=== PATIENT | male | born 1950 | race Caucasian/White ===

== ENCOUNTER 2016-06-24 00:40 | Observation (INO) | payer OTHER ==
[2016-06-24] MEDS ORDERED: NS 500 ML IV ONE (00:51)
[2016-06-24] MEDS ORDERED: ASPIRIN 81 MG CHEWABLE TAB PO ONE (00:51)
[2016-06-24] MEDS ORDERED: ONDANSETRON 4 MG/2 ML VIAL IVP ONE (00:51)
--- NOTE | 2016-06-24 00:51 | EDPHY ---
H & P Stated Complaint: wrist pain, irregular heartbeat HPI/ROS: HPI CHIEF COMPLAINT: left arm pain, nausea, palpitations HISTORY OF PRESENT ILLNESS: This patient very pleasant 65-year-old male significant past medical history for coronary artery disease, CABG, he had 3 vessel bypass, and then had 3 stents placed after his bypass surgery, takes daily Plavix, denies any other significant medical history, presents to the emergency room with left arm pain that he describes an achy sensation is lower arm. He states around 630PM he was out to dinner he developed left lower wrist pain arm pain that progressed throughout dinner he then went to a movie with his noticed that he had an irregular pulse, and his left arm pain started to progress worse going up his left arm. He denies chest pain he does endorse some nausea and lightheadedness and palpitations. Denies shortness of breath, denies history of blood clot. Denies trauma currently this time his left arm pain is 6/10 achy in sensation. Nonradiating. Not worse with movement. Denies injury. Past Medical History: Coronary artery disease Past Surgical History: CABG, 3 vessel Social History: Denies daily use drugs, alcohol, tobacco products Family History: Noncontributory ROS REVIEW OF SYSTEMS: A comprehensive 10 point review of systems is otherwise negative aside from elements mentioned in the history of present illness. Exam Constitutional triage nursing summary reviewed, vital signs reviewed, awake/ alert. Eyes normal conjunctivae and sclera, EOMI, PERRLA. HENT normal inspection, atraumatic, moist mucus membranes, no epistaxis, neck supple/ no meningismus, no raccoon eyes. Respiratory clear to auscultation bilaterally, normal breath sounds, no respiratory distress, no wheezing. Cardiovascular rate normal, regular rhythm, no murmur, no edema, distal pulses normal. Gastrointestinal soft, non-tender, no rebound, no guarding, normal bowel sounds, no distension, no pulsatile mass. Genitourinary no CVA tenderness. Musculoskeletal left upper extremity: Neurovascularly intact, good cap refill , good radial pulse, good sensation, no signs of significant swelling, no crepitus on exam, no rash, no warmth, no midline vertebral tenderness, full range of motion, no calf swelling, no tenderness of extremities, no meningismus , good pulses, neurovascularly intact. Skin pink, warm, & dry, no rash, skin atraumatic. Neurologic awake, alert and oriented x 3, AAOx3, moves all 4 extremities equally, motor intact, sensory intact, CN II-XII intact, normal cerebellar, normal vision, normal speech. Psychiatric normal mood/affect. Heme/Lymph/Immune no lymphadenopathy. Differential diagnosis includes but is not limited to: ACS, aortic dissection, atypical chest pain, pneumothorax, pneumonia, pulmonary embolism, aortic dissection, congestive heart failure, tumor, musculoskeletal pain, esophageal pain, GERD, peptic ulcer disease, pancreatitis Medical Decision Making: This patient had an IV established patient be given morphine for pain control, will check an EKG, chest x-ray, blood work, troponin , we may need to rule out aortic dissection given severe left arm pain. Re-evaluation: EKG interpretation by me on record in [employer] system. Impression time of EKG 0051, this is sinus rhythm rate of 94, ventricular bigeminy present, left anterior fascicular block present, PVC present. No old EKG to compare this to I do not appreciate an acute ST-elevation AR. ED x-ray chest one view: Cardiomegaly present, otherwise unremarkable. EKG interpretation by me on record in [employer] system. Impression repeat EKG time of EKG 1:31 a.m., this is sinus rhythm rate of 73, PVC present, left anterior fascicular block present, I do not appreciate ST elevation, ST depression significant T-wave abnormality. CT scan of the angiogram chest. The results of the study are no evidence of aortic dissection or thoracic aortic aneurysm, there is a subsegmental left lower lobe pulmonary embolism. The study was read by Dr. Davison I viewed the images myself on the PACS system. 0254: this patient will need to be admitted for ongoing left wrist pain, I do not think this is a cardiac equivalent however he does have significant coronary disease. His CT angiogram does show left lower lobe subsegmental pulmonary embolism I have ordered him Lovenox 1 milligram/kilogram, I will admit him to the hospital service for observation, serial cardiac enzymes, treatment of this small left lower lobe subsegmental pulmonary embolism which most likely does not explain his left wrist pain. I have ordered a left wrist x -ray. He is focally tender at the distal left wrist however to neurovascular intact there is no crepitus warmth or redness. Most likely this may be a acute arthralgia, gout, tendinitis. Patient be admitted for small subsegmental left lower lobe PE. Left wrist pain most likely arthralgia, and serial enzymes to rule out cardiac. Spoke with the hospitalist service Dr. Chatman who agrees to admit. Source: Patient - Personal History Current Tetanus/Diphtheria Vaccine: Yes - Medical/Surgical History Hx Asthma: No Hx Chronic Respiratory Disease: No Hx Diabetes: No Hx Cardiac Disease: Yes Hx Renal Disease: No Hx Cirrhosis: No Hx Alcoholism: No Hx HIV/AIDS: No Hx Splenectomy or Spleen Trauma: No Other PMH: CABG - Social History Smoking Status: Never smoked Constitutional: Initial Vital Signs Temperature (C) 36.6 C 06/24/16 00:45 Heart Rate 63 06/24/16 00:45 Respiratory Rate 14 06/24/16 00:45 Blood Pressure 168/77 H 06/24/16 00:45 O2 Sat (%) 93 06/24/16 00:45 O2 Delivery Mode Room Air O2 (L/minute) 2 Allergies/Adverse Reactions: codeine Allergy (Verified 06/24/16 01:37) Abdominal Pain Home Medications: Medication Instructions Recorded Apixaban [Eliquis] 5 mg PO BID #70 tablet 06/24/16 Aspirin EC [Aspirin EC 81 mg (*)] 81 mg PO DAILY@06/24/16 Cholecalciferol Vit D3 [Vitamin D3 1,000 units PO DAILY@06/24/16 (*)] Clopidogrel Bisulfate [Plavix (*)] 75 mg PO DAILY@06/24/16 Glucosamine Sulfate [Glucosamine 500 mg PO DAILY@06/24/16 Sulfate 500 MG (*)] Herbals/Supplements -Info Only 1 ea PO DAILY 06/24/16 Metoprolol Succinate Xr [Toprol Xl 25 mg PO DAILY@06/24/16 25 mg (*)] Rosuvastatin Calcium [Crestor 40mg 40 mg PO DAILY@06/24/16 (*)] Sertraline HCl [Zoloft 50mg (*)] 50 mg PO DAILY@06/24/16 Medical Decision Making - Data Points Laboratory Results: Laboratory Results 06/24/16 00:55 06/24/16 00:55 Medications Given: Discontinued Medications Aspirin (Aspirin) 324 mg PO EDNOW ONE Stop: 06/24/16 00:52 Last Admin: 06/24/16 01:25 Dose: 324 mg Enoxaparin Sodium (Lovenox) 100 mg SC ONCE ONE Stop: 06/24/16 03:31 Last Admin: 06/24/16 03:30 Dose: 100 mg Hydromorphone HCl (Dilaudid) 0.5 mg IVP ONCE ONE Stop: 06/24/16 02:53 Last Admin: 06/24/16 03:14 Dose: 0.5 mg Sodium Chloride (Ns) 500 mls @ 0 mls/hr IV ONCE ONE PRN Reason: As Directed Stop: 06/24/16 00:52 Last Admin: 06/24/16 01:25 Dose: 500 mls Morphine Sulfate (Morphine) 4 mg IVP EDNOW ONE Stop: 06/24/16 00:52 Last Admin: 06/24/16 01:25 Dose: 4 mg Nitroglycerin (Nitrostat) 0.4 mg SL EDNOW ONE Stop: 06/24/16 01:51 Last Admin: 06/24/16 01:54 Dose: 0.4 mg Ondansetron HCl (Zofran) 4 mg IVP EDNOW ONE Stop: 06/24/16 00:52 Last Admin: 06/24/16 01:25 Dose: 4 mg Departure - Departure Disposition: [facility] Inpatient Acute Clinical Impression: Wrist pain, acute Qualifiers: Qualifier Code: (M25.532) Pain in left wrist Pulmonary emboli Qualifiers: Qualifier Code: (I26.99) Other pulmonary embolism without acute cor pulmonale Condition: Fair
--- NOTE | 2016-06-24 00:55 | CPEKG ---
Heart Rate: 94 RR Interval: 638 P-R Interval: 164 QRSD Interval: 94 QT Interval: 364 QTC Interval: 456 P Severance: 38 QRS Severance: -73 T Wave [place]: 60 EKG Severity - ABNORMAL ECG - EKG Impression: SINUS RHYTHM EKG Impression: VENTRICULAR BIGEMINY EKG Impression: LEFT ANTERIOR FASCICULAR BLOCK Electronically Signed By: Rolando Cotton 24-Jun-2016 07:26:41
[2016-06-24 01:04] LABS: % IMMATURE GRANULYOCYTES 0.3 % (0.0-1.1); ABSOLUTE IMMATURE GRANULOCYTES 0.02 10^3/uL (0.00-0.10); ADD DIFF? NO; ADD MORPH? NO; ADD SCAN? NO; ATYPICAL LYMPHOCYTE FLAG 0 (0-99); FRAGMENT RBC FLAG 0 (0-99); HEMATOCRIT 41.3 % (40.0-51.0); LEFT SHIFT FLG 0 (0-99); LIPEMIA HEMOLYSIS FLAG 90 (0-99); MEAN CELL HEMOGLOBIN 30.7 pg (27.9-34.1); MEAN CELL HEMOGLOBIN CONCENTR. 36.3 g/dL (32.4-36.7); MEAN CELL VOLUME 84.5 fL (81.5-99.8); MEAN PLATELET VOLUME 10.6 fL (8.7-11.7); PLATELET CLUMPS FLAG 0 (0-99); PLATELET COUNT 207 10^3/uL (150-400); RED BLOOD CELL COUNT 4.89 10^6/uL (4.40-6.38); RED CELL DISTRIBUTION WIDTH 12.1 % (11.5-15.2)
[2016-06-24 01:11] LABS: INR 0.95 (0.83-1.16); PROTIME(PATIENT) 12.6 SEC (12.0-15.0)
[2016-06-24 01:12] LABS: APTT 26.3 SEC (23.0-38.0)
[2016-06-24] MEDS ORDERED: IOPAMIDOL (ISOVUE 370) 100 ML BTL IV ONE (01:15)
[2016-06-24 01:16] LABS: ALANINE AMINOTRANSFERASE 54 IU/L (21-72); ALBUMIN 4.2 g/dL (3.5-5.0); ALKALINE PHOSPHATASE 50 IU/L (38-126); ANION GAP 12 mEq/L (8-16); ASPARTATE AMINOTRANSFERASE 37 IU/L (17-59); BILIRUBIN,TOTAL 0.5 mg/dL (0.1-1.4); BILIRUBIN-CONJUGATED 0.2 mg/dL (0.0-0.5); BILIRUBIN-UNCONJUGATED 0.3 mg/dL (0.0-1.1); CALCIUM 9.4 mg/dL (8.5-10.4); CARBON DIOXIDE 23 mEq/l (22-31); CHLORIDE 108 mEq/L (97-110); CREATININE 0.9 mg/dL (0.7-1.3); GLOMERULAR FILTRATION RATE > 60; GLUCOSE 112 mg/dL (70-100); MAGNESIUM 1.8 mg/dL (1.6-2.3); POTASSIUM 3.9 mEq/L (3.5-5.2); SODIUM 143 mEq/L (134-144); TOTAL PROTEIN 6.6 g/dL (6.3-8.2)
[2016-06-24 01:30] LABS: TROPONIN I < 0.012 ng/mL (0-0.034)
--- NOTE | 2016-06-24 01:38 | CPEKG ---
Heart Rate: 73 RR Interval: 822 P-R Interval: 168 QRSD Interval: 92 QT Interval: 416 QTC Interval: 459 P [place]: 45 QRS [place]: -57 T Wave [place]: 59 EKG Severity - ABNORMAL ECG - EKG Impression: SINUS RHYTHM EKG Impression: MULTIPLE VENTRICULAR PREMATURE COMPLEXES EKG Impression: LEFT ANTERIOR FASCICULAR BLOCK EKG Impression: BORDERLINE R WAVE PROGRESSION, ANTERIOR LEADS Electronically Signed By: Rolando Cotton 24-Jun-2016 07:26:41
[2016-06-24] MEDS ORDERED: NITROGLYCERIN 0.4 MG BTL SL ONE (01:50)
[2016-06-24] MEDS ORDERED: ENOXAPARIN 100 MG/ML SYR SC ONE ×2 (02:51→03:30)
[2016-06-24] MEDS ORDERED: HYDROmorphONE/DILAUDID 1 MG/ML SYR IVP ONE (02:52)
--- NOTE | 2016-06-24 03:46 | PDGENHP ---
History and Physical - Chief Complaint L wrist pain - History of Present Illness Pt is 65/M with CAD s/p CABG and PCI who presents to the ED with left wrist pain. Patient states pain started around 630 after dinner on 06/23, with a sharp achy type type pain on the radial aspect of his distal wrist. He then went to a movie with his and pain continued to worsen throughout the evening, pain began to radiate to his medial hand and up his forearm. He denies any recent trauma, fall on outstretched hand and also denies any associated swelling, redness, warmth. He does report the day prior to presentation he spent a large portion of the afternoon performing yard work, including raking in cleaning brush for several hours. Decided to come to the ED when the pain began to radiate up his left arm (did not extend proximally beyond his elbow). He has never felt this type of pain before, he has no prior history of gout or carpal tunnel syndrome. Upon arrival to the ED patient was afebrile and hemodynamically stable. EKG revealed sinus rhythm with bigeminy, labs including troponin and electrolytes were within normal limits. CT angio the chest was obtained to rule out aortic dissection as a cause of his symptoms; dissection/aneurysm were ruled out, however incidental left lower lobe acute PE was discovered. Pt was given pain control and initiated on Lovenox for systemic anticoagulation and admitted to the hospitalist service for further management. On further questioning patient does report about 1 month ago he and his drove from [place] to [facility] and traveled the [facility] for several days. This vacation had multiple days of long (>6hr) car rides. On presentation, patient denies any chest pain, palpitations, pleuritic chest pain or acute shortness of breath. Does report over the last 2-3 days he has noticed a new decrease in his exercise tolerance due to dyspnea. History Information - Allergies/Home Medication List Allergies/Adverse Reactions: codeine Allergy (Verified 06/24/16 01:37) Abdominal Pain I have personally reviewed and updated: family history, medical history, social history, surgical history - Past Medical History Additional medical history: CAD s/p CABG x 3 vessels and then restenosis of grafted vessels, requiring PCI (2008) - Surgical History Additional surgical history: CABG. R shoulder arthroscopy - Family History Positive for: non-pertinent (no FH of CAD, DM2, cancer) - Social History Smoking Status: Never smoked Alcohol Use: Occasionally (1 glass of wine nightly) Drug Use: None Additional social history: Pt lives with , recently retired traveling salesman. Review of Systems ROS: 10pt was reviewed & negative except for what was stated in HPI & below Physical Exam Temp Pulse Resp BP Pulse Ox 36.6 C 79 16 121/61 H 92 06/24/16 00:45 06/24/16 02:00 06/24/16 02:00 06/24/16 02:00 06/24/16 02:00 Constitutional: no apparent distress, not in pain, obese Eyes: PERRL, anicteric sclera, EOMI Ears, Nose, Mouth, Throat: moist mucous membranes, hearing normal, ears appear normal, no oral mucosal ulcers Cardiovascular: regular rate and rhythym, no murmur, rub, or gallop, pulses symmetric bilaterally, edema (trace LE edema, R>L), No JVD, No tachycardia Peripheral Pulses: 2+: dorsalis-pedis (R), dorsalis-pedis (L) Respiratory: no respiratory distress, no rales or rhonchi, clear to auscultation Gastrointestinal: normoactive bowel sounds, soft, non-tender abdomen, no palpable masses, No guarding, No rebound, No distension Genitourinary: no bladder fullness, no bladder tenderness Skin: warm, normal color, no rashes or abrasions, no fluctuance, No mottled Musculoskeletal: no joint effusions, other (L wrist tenderness along pollicis tendons and carpal tunnel sheath, with hyperextension and flexion of wrist) Neurologic: AAOx3, sensation intact bilaterally, CN II-XII Intact, No weakness, No numbness, No pronator drift Psychiatric: interacting appropriately, not anxious, not encephalopathic, thought process linear Lab Data & Imaging Review 06/24/16 00:55 06/24/16 00:55 WBC 7.71 10^3/uL (3.80-9.50) 06/24/16 00:55 RBC 4.89 10^6/uL (4.40-6.38) 06/24/16 00:55 Hgb 15.0 g/dL (13.7-17.5) 06/24/16 00:55 Hct 41.3 % (40.0-51.0) 06/24/16 00:55 MCV 84.5 fL (81.5-99.8) 06/24/16 00:55 MCH 30.7 pg (27.9-34.1) 06/24/16 00:55 MCHC 36.3 g/dL (32.4-36.7) 06/24/16 00:55 RDW 12.1 % (11.5-15.2) 06/24/16 00:55 Plt Count 207 10^3/uL (150-400) 06/24/16 00:55 MPV 10.6 fL (8.7-11.7) 06/24/16 00:55 Neut % (Auto) 55.1 % (39.3-74.2) 06/24/16 00:55 Lymph % (Auto) 30.0 % (15.0-45.0) 06/24/16 00:55 Riley % (Auto) 9.9 % (4.5-13.0) 06/24/16 00:55 Eos % (Auto) 3.9 % (0.6-7.6) 06/24/16 00:55 Baso % (Auto) 0.8 % (0.3-1.7) 06/24/16 00:55 Nucleat RBC Rel Count 0.0 % (0.0-0.2) 06/24/16 00:55 Absolute Neuts (auto) 4.26 10^3/uL (1.70-6.50) 06/24/16 00:55 Absolute Lymphs (auto) 2.31 10^3/uL (1.00-3.00) 06/24/16 00:55 Absolute Monos (auto) 0.76 10^3/uL (0.30-0.80) 06/24/16 00:55 Absolute Eos (auto) 0.30 10^3/uL (0.03-0.40) 06/24/16 00:55 Absolute Basos (auto) 0.06 10^3/uL (0.02-0.10) 06/24/16 00:55 Absolute Nucleated RBC 0.00 10^3/uL (0-0.01) 06/24/16 00:55 Immature Gran % 0.3 % (0.0-1.1) 06/24/16 00:55 Immature Gran # 0.02 10^3/uL (0.00-0.10) 06/24/16 00:55 PT 12.6 SEC (12.0-15.0) 06/24/16 00:55 INR 0.95 (0.83-1.16) 06/24/16 00:55 APTT 26.3 SEC (23.0-38.0) 06/24/16 00:55 VBG Lactic Acid 1.6 mmol/L (0.7-2.1) 06/24/16 00:42 Sodium 143 mEq/L (134-144) 06/24/16 00:55 Potassium 3.9 mEq/L (3.5-5.2) 06/24/16 00:55 Chloride 108 mEq/L (97-110) 06/24/16 00:55 Carbon Dioxide 23 mEq/l (22-31) 06/24/16 00:55 Anion Gap 12 mEq/L (8-16) 06/24/16 00:55 BUN 13 mg/dL (7-23) 06/24/16 00:55 Creatinine 0.9 mg/dL (0.7-1.3) 06/24/16 00:55 Estimated GFR > 60 06/24/16 00:55 Glucose 112 mg/dL (70-100) H 06/24/16 00:55 Calcium 9.4 mg/dL (8.5-10.4) 06/24/16 00:55 Magnesium 1.8 mg/dL (1.6-2.3) 06/24/16 00:55 Total Bilirubin 0.5 mg/dL (0.1-1.4) 06/24/16 00:55 Conjugated Bilirubin 0.2 mg/dL (0.0-0.5) 06/24/16 00:55 Unconjugated Bilirubin 0.3 mg/dL (0.0-1.1) 06/24/16 00:55 AST 37 IU/L (17-59) 06/24/16 00:55 ALT 54 IU/L (21-72) 06/24/16 00:55 Alkaline Phosphatase 50 IU/L (38-126) 06/24/16 00:55 Creatine Kinase 98 IU/L (0-224) 06/24/16 00:55 CK-MB (CK-2) Fraction 2.00 ng/mL (0-3.19) 06/24/16 00:55 Troponin I < 0.012 ng/mL (0-0.034) 06/24/16 00:55 NT-Pro-B Natriuret Pep 251 pg/mL (0-125) H 06/24/16 00:55 Total Protein 6.6 g/dL (6.3-8.2) 06/24/16 00:55 Albumin 4.2 g/dL (3.5-5.0) 06/24/16 00:55 Lipase 188.0 IU/L (23-300) 06/24/16 00:55 Visualized and Interpreted Chest x-ray results: Yes Chest X-Ray results: no infiltrate, normal Visualized and Interpreted imaging results: Yes Interpretation: CT angio chest: no aortic dissection or aneurysm; small LLL pulm embolism. L-wrist x-ray: no obvious fracture Visualized and Interpreted EKG results: Yes EKG additional interpertation: sinus rhythm, occasional ventr bigeminy; no ST/T wave changes Assessment & Plan Assessment: Pt is 65/M with CAD who presents to the ED with acute L wrist pain, was incidentally also found to have an acute pulmonary embolism. Plan: # acute LLL pulm embolism Pt hemodynamically stable, troponin negative and EKG without evidence of heart strain. Clot burden appears small on CT. Initiated on lovenox in ED. - check LE dopplers, TTE - trend troponins - cont lovenox 100 mg bid - given pt already on asa/plavix, coumadin will likely be the best agent for systemic anticoagulation # L wrist pain Likely musculoskeletal in origin, differential includes tenosynovitis, carpal tunnel syndrome, osteoarthritis. - f/u official x-ray read - ibuprofen/morphine prn pain - consider wrist splint # CAD Pt denies any chest pain, labs and EKG are wnl. Will cont home meds and TTE to r /o heart strain related to the acute PE. - confirm and cont home meds # dispo: observe in EACU Full code
[2016-06-24 06:45] LABS: % IMMATURE GRANULYOCYTES 0.3 % (0.0-1.1); ABSOLUTE IMMATURE GRANULOCYTES 0.02 10^3/uL (0.00-0.10); ADD DIFF? NO; ADD MORPH? NO; ADD SCAN? NO; ANION GAP 7 mEq/L (8-16); ATYPICAL LYMPHOCYTE FLAG 0 (0-99); CARBON DIOXIDE 24 mEq/l (22-31); CHLORIDE 110 mEq/L (97-110); CREATININE 0.7 mg/dL (0.7-1.3); FRAGMENT RBC FLAG 0 (0-99); GLOMERULAR FILTRATION RATE > 60; GLUCOSE 99 mg/dL (70-100); HEMATOCRIT 37.1 % (40.0-51.0); HEMOGLOBIN 13.1 g/dL (13.7-17.5); LEFT SHIFT FLG 0 (0-99); LIPEMIA HEMOLYSIS FLAG 90 (0-99); MAGNESIUM 1.7 mg/dL (1.6-2.3); MEAN CELL HEMOGLOBIN 30.3 pg (27.9-34.1); MEAN CELL HEMOGLOBIN CONCENTR. 35.3 g/dL (32.4-36.7); MEAN CELL VOLUME 85.9 fL (81.5-99.8); MEAN PLATELET VOLUME 10.6 fL (8.7-11.7); PLATELET CLUMPS FLAG 10 (0-99); PLATELET COUNT 165 10^3/uL (150-400); POTASSIUM 4.5 mEq/L (3.5-5.2); RED BLOOD CELL COUNT 4.32 10^6/uL (4.40-6.38); RED CELL DISTRIBUTION WIDTH 12.5 % (11.5-15.2); SODIUM 141 mEq/L (134-144)
[2016-06-24 06:57] LABS: TROPONIN I < 0.012 ng/mL (0-0.034)
[2016-06-24] MEDS ORDERED: IBUPROFEN 600 MG TAB PO PRN (07:00)
--- NOTE | 2016-06-24 08:25 | US ---
Bilateral Lower Extremity Venous Doppler Study Clinical Indications: 65-year-old male with newly diagnosed PE and asymmetric lower extremity edema. Rule out DVT. Technique: A high-frequency transducer was used for compression imaging and Doppler study of the denis p veins of both legs, from the upper calves to the groins. Pulsed Doppler and color Doppler were util ized, along with various maneuvers to assess flow in the deep veins. Comparison Study: None. Findings: Right Leg: The deep veins of the groin, thigh, knee, and upper calf are well-displayed, and are norm ally compressible. Doppler flow patterns are unremarkable. There is no evidence of deep venous thro mbosis. The greater saphenous vein is patent. The popliteal fossa is unremarkable. Left Leg: The deep veins of the groin, thigh, knee, and upper calf are well-displayed, and are kymberly lly compressible. Doppler flow patterns are unremarkable. There is no evidence of deep venous throm bosis. There is normal compression of the greater saphenous vein, without superficial thrombosis. The popliteal fossa is unremarkable. Impression: There is no sonographic evidence of deep or superficial venous thrombosis in either lower extremity.
--- NOTE | 2016-06-24 09:20 | DX ---
Left Wrist, 4 Views, at 2:56 a.m. Clinical History: 65-year-old male with left wrist pain and some abrasions. Comparison Study: None. Findings: A metallic ring overlies the 4th digit proximal phalanx. Bone mineralization is preserved. There is no acute fracture or dislocation. The distal radius and navicular are intact. There are some faint vascular calcifications, which may reflect some underlying diabetes, although are otherwise no nspecific. There some degenerative change of the navicular/greater multangular articulation. Impression: There is no acute osseous abnormality. If there is a high clinical concern regarding an occult fracture, conservative management and short-t erm repeat radiography follow up in 7 to 14 days is suggested.
--- NOTE | 2016-06-24 09:22 | DX ---
Portable AP Upright Chest - June 24, 2016, at 1:00 a.m. Clinical History: 65-year-old male with a prior history of open heart surgery, presenting to the [facility] Department complaining of chest pain and left arm pain. Comparison Study: Chest, dated October 19, 2008. Findings: Telemetry monitoring lead lines are present. Median sternotomy wires and mediastinal surgi missael clips are seen. There are mild hypoventilatory features, and there is a suboptimal radiographic e xposure with poor penetration. The cardiac size is normal. There is no focal infiltrate, pleural effu karyn, peripheral interstitial edema or pneumothorax. Impression: 1. Sequela of prior remote CABG, with no evidence of congestive heart failure. 2. Mild hypoventilatory features. At Dr. Rolando Cotton's request, the patient also underwent a CTA of the chest, which should be sepa rately referenced.
--- NOTE | 2016-06-24 09:22 | CPEKG ---
Heart Rate: 54 RR Interval: 1111 P-R Interval: 180 QRSD Interval: 94 QT Interval: 456 QTC Interval: 433 P [place]: 48 QRS [place]: -47 T Wave [place]: 51 EKG Severity - OTHERWISE NORMAL ECG - EKG Impression: SINUS RHYTHM EKG Impression: LEFT AXIS DEVIATION Preliminary Awaiting MD Review
--- NOTE | 2016-06-24 10:40 | ECHO ---
[id number] + + [address] : : [place] [address] : : [phone] + + Adult Echocardiographic Report + ---+ :Name: LIEN HANEY WStudy Date: 06/24/2016 08:44 AM : : Hospital Admission Number: [id number] Location: 141: :: 1950 Gender: Male Height: 69 in : :Age: 65 yrs Race: WH Weight: 225 lb : :Reason For Study: PE/R/O heart strain : : BSA: 2.2 meters2 : :History: CABG : + ---+ MMode/2D Measurements & Calculations IVSd: 0.91 cm LVIDd: 5.6 cm FS: 42.5 % Ao root diam: LVPWd: 0.89 cm LVIDs: 3.2 cm EDV(Teich): 3.6 cm 155.3 ml LA dimension: ESV(Teich): 5.0 cm 42.1 ml EF(Teich): 72.9 % LVLd ap4: 8.4 cm SV(MOD-sp4): EDV(MOD-sp4): 71.0 ml 99.0 ml LVLs ap4: 7.1 cm ESV(MOD-sp4): 28.0 ml EF(MOD-sp4): 71.7 % Normal Measurement Values: + + :LVIDd (3.5-5.7cm) IVSd (0.6-1.1cm) LVPWd (0.6-1.1cm) Aortic Root (2.0-3.7cm)Left Atrium (1.5-4.0cm): :LV Vol(d) (76-115ml) LV Vol(s) (29-48ml) Ejec Fraction (50-65%)PV Roman (0.6- 1.2m/s) TV Roman (0.4-1.0m/s) : :MV E Roman (0.8-1.0m/s)MV A Roman (0.3-1.0m/s)LVOT Roman (0.7-1.2m/s) Asc Ao Roman ( 0.9-1.8m/s) : + + Doppler Measurements & Calculations MV E max roman: 117.5 cm/sec Ao mean P.4 mmHg TR max roman: 298.6 cm/sec MV A max roman: 91.8 cm/sec Ao V2 mean: 84.9 cm/sec TR max P.7 mmHg MV E/A: 1.3 Ao V2 VTI: 30.5 cm RAP systole: 5.0 mmHg RVSP(TR): 40.7 mmHg Left Ventricle The left ventricle is normal in size and function. There is normal left ventricular wall thickness. Left ventricular systolic function is normal. Ejection Fraction = 65-70%. There is Doppler evidence for diastolic dysfunction. No regional wall motion abnormalities noted. Right Ventricle The right ventricle is normal in size and function. Atria The left atrium is mildly dilated. Right atrial size is normal. The interatrial septum is intact with no evidence for an atrial septal defect. Mitral Valve The mitral valve is normal in structure and function. There is no evidence of mitral valve prolapse. There is no mitral valve stenosis. There is trace to mild mitral regurgitation. Tricuspid Valve Normal tricuspid valve. There is trace tricuspid regurgitation. Right ventricular systolic pressure is 41mmHg. Aortic Valve The aortic valve is trileaflet. The aortic valve opens well. There is no aortic stenosis. There is no aortic insufficiency. Pulmonic Valve The pulmonic valve is normal in structure and function. There is no pulmonic valvular regurgitation. Great Vessels The aortic root is normal size. Pericardium/Pleural There is no pericardial effusion. Conclusion A complete two-dimensional transthoracic echocardiogram was performed (2D, M-mode, Doppler and color flow Doppler). The left ventricle is normal in size and function. Left ventricular systolic function is normal. Ejection Fraction = 65-70%. There is Doppler evidence for diastolic dysfunction. The left atrium is mildly dilated. There is trace to mild mitral regurgitation. There is trace tricuspid regurgitation. Right ventricular systolic pressure is 41mmHg. Final Reading Physician: Ba Lopez signed on 06/24/2016 10:38 AM Ordering Physician: Maine Chatman Performed By: Iris Pacheco RDCS
[2016-06-24 12:39] VITALS: BP 125/70; PULSE 70; RESP 14; TEMP 97.2; O2SAT 93
--- NOTE | 2016-06-24 13:35 | GDS ---
[f rep st] DISCHARGE SUMMARY DISCHARGE DIAGNOSES: 1. Left wrist pain most likely due to synovitis. 2. Incidental left lower lobe pulmonary embolism likely subacute. 3. History of coronary artery disease. CONSULTANTS: None. HOSPITAL COURSE AND STAY BY PROBLEM: 1. Left wrist pain: The patient was placed on observation where wrist x-rays were done that were un remarkable. The patient had a positive Kathy test which is consistent with tenosynovitis of th e left wrist. This likely was precipitated by yard work. The patient was recommended to wear a wris t splint and ice. NSAIDs are contraindicated in light of below. If he continues to have wrist pain, he should consider followup with an orthopedic surgeon to consider injection. 2. Incidental finding of left lower lobe pulmonary embolism: In the Emergency Department, there wer e some concerns of possible aortic dissection. Subsequently, a CT angio of the chest was done that r evealed an incidental left lower lobe pulmonary embolism. Lower extremity Doppler's were done that w ere negative for DVT. An echocardiogram was done that did not reveal any significant signs of myocar dial strain. However, his right ventricular systolic pressure was mildly elevated at 41 mmHg. a. On day of discharge, the patient denies any significant shortness of breath or chest pain. His o xygen saturations are in the mid-90s on room air. b. After long discussion with the patient, he has opted to start Eliquis. I did discuss the risks o f lack of reversibility agent, but the patient would still like to proceed with treatment since he pl ans to go on an international vacation fairly soon and would be unable to have his INR monitored. 3. History of coronary artery disease with coronary artery bypass grafting and left main stent: Melissa or to discharge, I discussed triple platelet therapy with Dr. Yusuf who is on-call for Cardiology who recommended that he continue aspirin, Plavix, and Eliquis which is being started. He should discuss discontinuing triple therapy with his treating senior private client advisor in the next few weeks. DISCHARGE PHYSICAL EXAM: VITAL SIGNS: Blood pressure 111/63, pulse of 58, respiratory rate 12, O2 s aturation 92% on room air. GENERAL: In no acute distress. HEART: S1, S2. LUNGS: Clear. ABDOMEN : Soft. EXTREMITIES: No edema. Left wrist is not hot, it is not swollen. He has a positive Vanessa lstein test. DATA: Diagnostics done this hospital stay: 1. CT angio done 06/24/2016. Refer to report. 2. Echocardiogram done 06/24/2016. Refer to report. 3. Lower extremity Doppler done 06/24/2016. Refer to report. DISCHARGE MEDICATIONS: Please refer to discharge medication reconciliation in [facility] for full deta ils. Below is a preliminary list. New medications on hospital discharge: Eliquis 10 mg p.o. b.i.d. for 1 week, followed by 5 mg b.i.d. thereafter to complete 3 months of treatment in the setting of provoked clot. DISCHARGE INSTRUCTIONS: 1. The patient will be discharged from the hospital where, once again, he should follow up with the [facility] in the next few weeks to discuss triple platelet therapy. 2. He should also follow up with his primary care provider in the next week to ensure he is tolerati ng anticoagulation. Copy requested to: Franck Chavez MD [facility] /[id number]/MODL
--- NOTE | 2016-06-24 15:59 | CT ---
CT Chest Pulmonary Angiogram With Contrast Enhancement and Multiplanar Reconstructions at 0219 hours History: Chest pain and dyspnea, left arm tingling. Prior coronary artery bypass, coronary artery disease. Technique: 1.25-mm axial multidetector helical CT imaging was performed through the chest while 90 mL Isovue-370 were injected intravenously without complication. The images were then transferred to an independent workstation where multiplanar and three-dimensional reconstructions were performed by th e interpreting physician and reviewed at multiple windows. Dose reduction techniques were utilized. CT Pulmonary Angiogram Findings: Minimal single intraluminal thrombus identified in the left lower lo be on image 115 of series 5 of indeterminate age. No central pulmonary thromboemboli. No definite rig ht-sided pulmonary thromboemboli. No aortic aneurysm or dissection. Mild atherosclerotic calcificati on of the origin of the great vessels. Extensive coronary artery calcifications with median sternotom y wires. CT Chest Findings: No pericardial effusion, pleural effusion or pneumothorax. Calcified granulomata i n the right hilum and right lower lobe. Multiple splenic granulomata without splenomegaly. No pneumot horax. No suspicious pulmonary nodules or significant adenopathy. No pleural effusion. No definite fo missael pneumonia. There is a single hypodensity in the right lobe of the liver near the dome of the diap hragm measuring 14 mm. Image 129 of series 5. Impression: 1. Single left lower lobe small intraluminal pulmonary embolus identified. 2. Atherosclerotic aorta without aneurysm or dissection. 3. Prior coronary artery bypass. 4. Calcified granulomata. 5. Nonspecific hypodensity in the right lobe of liver measuring 14 mm. Consider follow-up ultrasound. Findings and recommendations discussed with Emergency Department physician, Dr. Rolando Cotton at 02 35 hours today. Final report concurs with initial preliminary interpretation. A test result has been communicated to a licensed care provider and documented in [employer], 3:54:32 PM , 06/24/2016, [employer] [facility] [employer] Message ID [id number].
[2016-06-24] MEDS ORDERED: ENOXAPARIN 100 MG/ML SYR SC SCH (21:00)
== END 2016-06-24 13:11 | disposition home or self-care (01) ==
LOC: F1N 03:43
PROVIDERS: ADMIT Internal Medicine; ATTEND Internal Medicine
DX: M25.532 Pain in left wrist (principal); I26.99 Other pulmonary embolism without acute cor pulmonale; R11.0 Nausea; R00.2 Palpitations; I25.10 Atherosclerotic heart disease of native coronary artery without angina pectoris; Z95.1 Presence of aortocoronary bypass graft; Z95.5 Presence of coronary angioplasty implant and graft; I70.0 Atherosclerosis of aorta; K76.89 Other specified diseases of liver; Z79.02 Long term (current) use of antithrombotics/antiplatelets
CPT/HCPCS: 71010; 71275; 73110; 93005; 93306; 93970; G0378; J1170; J1650; J2405; Q9967; 96374

== ENCOUNTER → 2016-07-18 | Outpatient (CLI) | payer OTHER | LOC: BHFA 09:30 | PROVIDERS: ATTEND Internal Medicine Cardiovascular Disease | DX: I25.10 Atherosclerotic heart disease of native coronary artery without angina pectoris (principal) | CPT/HCPCS: 78452; 93017; A9500 ==

== ENCOUNTER 2016-08-03 09:33 | Day surgery (SDC) | payer OTHER ==
[2016-08-03] MEDS ORDERED: NS 1,000 ML IV ONE (09:42)
[2016-08-03] MEDS ORDERED: DIAZEPAM 5 MG TAB PO ONE (09:42)
[2016-08-03] MEDS ORDERED: ASPIRIN EC 325 MG TAB PO ONE ×2 (09:42→10:02)
[2016-08-03] MEDS ORDERED: FAMOTIDINE 20 MG TAB PO ONE (09:42)
[2016-08-03] MEDS ORDERED: diphenhydrAMINE 25 MG CAP PO ONE ×2 (09:42→10:02)
--- NOTE | 2016-08-03 09:54 | CPEKG ---
Heart Rate: 49 RR Interval: 1224 P-R Interval: 180 QRSD Interval: 94 QT Interval: 456 QTC Interval: 412 P [place]: 54 QRS [place]: 39 T Wave [place]: 51 EKG Severity - BORDERLINE ECG - EKG Impression: SINUS BRADYCARDIA EKG Impression: BORDERLINE R WAVE PROGRESSION, ANTERIOR LEADS Electronically Signed By: David Melendez 03-Aug-2016 14:40:46
[2016-08-03] MEDS ORDERED: DIAZEPAM 5 MG TAB ONE (10:02)
[2016-08-03] MEDS ORDERED: FAMOTIDINE 20 MG TAB ONE (10:02)
[2016-08-03 10:10] LABS: % IMMATURE GRANULYOCYTES 0.2 % (0.0-1.1); ABSOLUTE IMMATURE GRANULOCYTES 0.01 10^3/uL (0.00-0.10); ADD DIFF? NO; ADD MORPH? NO; ADD SCAN? NO; ATYPICAL LYMPHOCYTE FLAG 0 (0-99); FRAGMENT RBC FLAG 0 (0-99); HEMATOCRIT 43.1 % (40.0-51.0); LEFT SHIFT FLG 0 (0-99); LIPEMIA HEMOLYSIS FLAG 90 (0-99); MEAN CELL HEMOGLOBIN 29.6 pg (27.9-34.1); MEAN CELL HEMOGLOBIN CONCENTR. 34.8 g/dL (32.4-36.7); MEAN PLATELET VOLUME 10.8 fL (8.7-11.7); PLATELET CLUMPS FLAG 10 (0-99); PLATELET COUNT 201 10^3/uL (150-400); RED BLOOD CELL COUNT 5.07 10^6/uL (4.40-6.38); RED CELL DISTRIBUTION WIDTH 12.6 % (11.5-15.2)
[2016-08-03 10:22] LABS: INR 1.03 (0.83-1.16); PROTIME(PATIENT) 13.4 SEC (12.0-15.0)
[2016-08-03 10:27] LABS: ANION GAP 9 mEq/L (8-16); CALCIUM 8.9 mg/dL (8.5-10.4); CARBON DIOXIDE 24 mEq/l (22-31); CHLORIDE 111 mEq/L (97-110); CHOLESTEROL 132 mg/dL (140-220); CHOLESTEROL/HDL RATIO 3.14 RATIO (1.00-4.97); CREATININE 0.7 mg/dL (0.7-1.3); GLOMERULAR FILTRATION RATE > 60; GLUCOSE 98 mg/dL (70-100); HIGH DENSITY LIPOPROTEIN 42 mg/dL (40-65); LDL/HDL RATIO 1.81 RATIO (1.00-3.64); LOW DENSITY LIPOPROTEIN 76 mg/dL (80-100); MAGNESIUM 1.8 mg/dL (1.6-2.3); NON-HIGH DENSITY LIPOPROTEIN 90 mg/dL (90-129); POTASSIUM 4.5 mEq/L (3.5-5.2); SODIUM 144 mEq/L (134-144); TRIGLYCERIDE 74 mg/dL (40-150); VERY LOW DENSITY LIPOPROTEINS 14 mg/dL (8-25)
[2016-08-03] MEDS ORDERED: IOPAMIDOL (ISOVUE-370) 150 ML BTL IV ONE (11:35)
[2016-08-03] MEDS ORDERED: fentaNYL 100 MCG/2 ML INJ ONE (11:35)
[2016-08-03] MEDS ORDERED: LIDOCAINE 1% 30 ML SDV ONE (11:35)
[2016-08-03] MEDS ORDERED: MIDAZOLAM 2 MG/2 ML VIAL ONE (11:35)
[2016-08-03] MEDS ORDERED: VERAPAMIL 5 MG/2 ML VIAL ONE (11:52)
[2016-08-03] MEDS ORDERED: HEPARIN 10,000 UNIT/10 ML MDV ONE (11:52)
[2016-08-03] MEDS ORDERED: NITROGLYCERIN 0.4 MG BTL SL PRN (12:39)
[2016-08-03] MEDS ORDERED: ATROPINE SULFATE 1 MG/10 ML SYR IVP PRN (12:39)
[2016-08-03] MEDS ORDERED: ONDANSETRON 4 MG/2 ML VIAL IVP PRN (12:39)
--- NOTE | 2016-08-03 12:44 | PDDXCAT ---
Diagnostic Cath Note - . Date: 08/03/16 Stripper Cutter Machine: Cem Indication: CCC Class III and IV angina on medical treatment High-risk criteria on non-invasive testing: stress-induced mod-size perf defect w LV dilatation or inc lung uptake - Procedure Access: left wrist Procedure: left heart catheterization, coronary angiography, left ventriculogram , BRAVO injection - Materials Left Heart Cath size: 5F Left Heart Cath materials: JR3.5, JR4.0, pigtail - Findings-Left Heart Catheterization LM: Stent widely patent. LAD: Stent to D1 patent with 30% ISR. LAD is occluded LCX: Occluded RCA: Dominant. PL origin 15%. Diffuse 10-20% plaque. No focal stenosis. BRAVO: Patent to the LAD EDP: 25 mmhg with inhalation. At end expiration 0 mmHg. LVEF: 60% Wall motion: Normal Complications: none Estimated blood loss: <50ml Closure method: TR Band Assessment: 1. Severe three vessel CAD with occlusion of the LAD and circumflex. 2. Patent BRAVO. 3 Patent LM-D1 stent. 4. Normal LV function. Plan: Continued aggressive medical therapy. Patient Problems: Problems Problem Status Diagnosed Coronary artery disease Acute Hx of CABG Acute Pulmonary emboli Acute Wrist pain, acute Acute
== END 2016-08-03 16:01 | disposition home or self-care (01) ==
LOC: FCATH 09:33
PROVIDERS: ATTEND Internal Medicine Interventional Cardiology
PROC: 4A023N7 Measurement of Cardiac Sampling and Pressure, Left Heart, Percutaneous Approach (ICD-10-PCS; principal; 2016-08-03)
PROC: B2151ZZ Fluoroscopy of Left Heart using Low Osmolar Contrast (ICD-10-PCS; 2016-08-03)
PROC: B2111ZZ Fluoroscopy of Multiple Coronary Arteries using Low Osmolar Contrast (ICD-10-PCS; 2016-08-03)
PROC: B2121ZZ Fluoroscopy of Single Coronary Artery Bypass Graft using Low Osmolar Contrast (ICD-10-PCS; 2016-08-03)
DX: I25.119 Atherosclerotic heart disease of native coronary artery with unspecified angina pectoris (principal); R94.39 Abnormal result of other cardiovascular function study; Z95.1 Presence of aortocoronary bypass graft; Z95.5 Presence of coronary angioplasty implant and graft; Z86.711 Personal history of pulmonary embolism
CPT/HCPCS: 93005; 93459; C1769; J1644; J2250; J3010; Q9967